=== PATIENT | male | born 1975 | race African-American/Black ===

== ENCOUNTER 2017-02-07 18:58 | Inpatient (IN) | payer MEDICAID ==
[~2017-02-07] VITALS: Ht 167.6 cm; Wt 100.0 kg
[2017-02-07] MEDS ORDERED: SODIUM CHLORIDE 0.9% 1,000 ML IV ONE (20:45)
[2017-02-07] MEDS ORDERED: LORazepam 2MG/ML-1ML VIAL IM ONE (20:45)
[2017-02-07] MEDS ORDERED: LORazepam 2MG/ML-1ML VIAL IV ONE (20:45)
[2017-02-07 21:01] LABS: Basophils # (auto) 0.1 uL; Basophils % (auto) 0.6 % (0.0-2.0); CONDITION Y; Eosinophils # (auto) 0.1 uL; Eosinophils % (auto) 1.4 % (0.0-7.0); Hematocrit 40.3 % (41.0-53.0); Hemoglobin 13.6 g/dL (13.5-17.5); Lymphocytes # (auto) 2.5 uL; Lymphocytes % (auto) 24.6 % (10.0-50.0); Mean Corpuscular Hemoglobin 30.7 pg (28.0-32.0); Mean Corpuscular Hgb Conc. 33.9 g/dL (32.0-36.0); Mean Corpuscular Volume 90.5 fL (80.0-100.0); Mean Platelet Volume 10.1 fL (7.4-10.4); Monocytes # (auto) 0.9 uL; Monocytes % (auto) 8.9 % (0.0-12.0); Neutrophils # (auto) 6.5 uL; Neutrophils % (auto) 64.5 % (37.0-80.0); Platelet Count (auto) 203 10^3/uL (140-450); Red Cell Distribution Width 14.9 % (11.6-16.0); SUSPECT SEE PRINTOUT
[2017-02-07 21:16] LABS: INR 1.04 (0.9-1.15); Partial Thromboplastin Time 28.1 sec (22.64-33.71); Prothrombin Time 11.3 sec (9.37-12.3)
[2017-02-07 21:21] LABS: Albumin 3.2 g/dL (3.4-5.0); Anion Gap 10 (5-15); Aspartate Aminotransferase 25 U/L (15-37); BUN/Creatinine Ratio 8.7; Blood Urea Nitrogen 9 mg/dL (7-18); Calcium 8.3 mg/dL (8.5-10.1); Carbon Dioxide 26 mmol/L (21-32); Chloride 106 mmol/L (98-107); GFR African American 102 mL/min; GFR Non-African American 85 mL/min; Glucose 98 mg/dL (74-106); Magnesium 2.2 mg/dL (1.6-2.6); Potassium 3.6 mmol/L (3.5-5.1); Sodium 142 mmol/L (136-145)
[2017-02-07 21:24] LABS: Alkaline Phosphatase 85 U/L (45-117); Bilirubin, Total 0.2 mg/dL (0.2-1.0)
[2017-02-07] MEDS ORDERED: LEVETIRACETAM INJ 500 MG in SODIUM CHL 0.9% 100 ML IV ONE (21:45)
[2017-02-07] MEDS ORDERED: PHENYTOIN IV DILANTIN 1,000 MG in SODIUM CHL 0.9% 250 ML IV ONE (21:45)
[2017-02-07] MEDS ORDERED: VALPROATE INJ 500 MG in SODIUM CHL 0.9% 100 ML IV ONE (21:45)
[2017-02-07] MEDS ORDERED: LORazepam 2MG/ML-1ML VIAL IV PRN (23:15)
[2017-02-07] MEDS ORDERED: LACTULOSE 20Gm/30ML SOLN PO PRN (23:15)
[2017-02-07] MEDS ORDERED: MORPHINE SULFATE 4 MG/ML SYRG IV PRN ×2 (23:15→23:45)
[2017-02-07] MEDS ORDERED: HYDROcodone-ACET 5/325MG TAB PO PRN (23:15)
[2017-02-07] MEDS ORDERED: ACETAMINOPHEN 500 MG TAB PO PRN (23:15)
[2017-02-07] MEDS ORDERED: ONDANSETRON HCL 4 MG/2 ML VIAL IV PRN (23:15)
[2017-02-07] MEDS ORDERED: LORazepam 0.5 MG TAB PO PRN (23:15)
[2017-02-07] MEDS ORDERED: PHENYTOIN SODIUM 50 MG/ML 5ML INJ VIAL IV ONE ×2 (23:18→23:24)
[2017-02-07] MEDS: SODIUM CHLORIDE 0.9% 1,000 ML IV SCH (23:30)
[2017-02-07] MEDS ORDERED: NITROGLYCERIN 0.4 MG SL TAB SL PRN (23:45)
[2017-02-07 23:55] LABS: Cholesterol 156 mg/dL (< 200); HDL Cholesterol 36 mg/dL (40-59); LDL Cholesterol 96 mg/dL (< 100); Triglycerides 182 mg/dL (< 150)
[2017-02-08] MEDS ORDERED: DIVA500T7 PO
[2017-02-08] MEDS ORDERED: SIMV10TA84 PO
[2017-02-08] MEDS ORDERED: PHEN125S OR
[2017-02-08] MEDS ORDERED: LEVE100012 PO
[2017-02-08] MEDS ORDERED: VALPROATE SODIUM 100 MG/ML 5ML VIAL IV ONE (00:44)
[2017-02-08 01:20] LABS: Urine Bilirubin Negative (Negative); Urine Blood Negative /uL (Negative); Urine Color Yellow (Yellow); Urine Glucose Normal (Normal); Urine Ketone Negative (Negative); Urine Nitrite Negative (Negative); Urine RBC 1 /hpf (0 - 3); Urine Squamous Epithelial Cell FEW /hpf (<5); Urine Urobilinogen Normal (Negative); Urine pH 6.5 (5.0-8.0)
[2017-02-08 05:37] VITALS: BP 124/54
[2017-02-08 07:14] LABS: Basophils # (auto) 0.1 uL; Basophils % (auto) 0.6 % (0.0-2.0); CONDITION Y; Eosinophils # (auto) 0.2 uL; Eosinophils % (auto) 1.6 % (0.0-7.0); Hematocrit 40.5 % (41.0-53.0); Hemoglobin 13.7 g/dL (13.5-17.5); Lymphocytes # (auto) 2.9 uL; Lymphocytes % (auto) 30.6 % (10.0-50.0); Mean Corpuscular Hgb Conc. 33.9 g/dL (32.0-36.0); Mean Corpuscular Volume 91.4 fL (80.0-100.0); Mean Platelet Volume 10.8 fL (7.4-10.4); Monocytes # (auto) 0.7 uL; Monocytes % (auto) 7.8 % (0.0-12.0); Neutrophils # (auto) 5.7 uL; Neutrophils % (auto) 59.4 % (37.0-80.0); Platelet Count (auto) 185 10^3/uL (140-450); Red Cell Distribution Width 14.4 % (11.6-16.0); White Blood Cell 9.6 10^3/uL (4.4-10.8)
[2017-02-08 07:24] LABS: BUN/Creatinine Ratio 9.6; Calcium 8.1 mg/dL (8.5-10.1); Potassium 4.2 mmol/L (3.5-5.1)
[2017-02-08 07:30] LABS: Partial Thromboplastin Time 25.8 sec (22.64-33.71); Prothrombin Time 10.9 sec (9.37-12.3)
[2017-02-08 09:10] VITALS: BP 122/76
[2017-02-08] MEDS ORDERED: PHENYTOIN SODIUM 100 MG CAP PO SCH (10:00)
[2017-02-08] MEDS: LEVETIRACETAM 500 MG TAB PO SCH ×2 (10:23→21:55)
[2017-02-08] MEDS: ENOXAPARIN SOD 40 MG/0.4 ML SYRINGE SC SCH (10:23)
[2017-02-08 13:00] VITALS: BP 126/66
[2017-02-08] MEDS: SODIUM CHLORIDE 0.9% 1,000 ML IV SCH ×2 (15:24→21:55)
[2017-02-08 17:00] VITALS: BP 119/73
[2017-02-08] MEDS: PHENYTOIN SODIUM 100 MG CAP PO SCH (21:55)
[2017-02-08] MEDS ORDERED: ATORVASTATIN 20 MG TAB PO SCH (22:00)
[2017-02-08 22:37] VITALS: BP 126/74
[2017-02-09 05:00] VITALS: BP 121/76
[2017-02-09] MEDS: PHENYTOIN SODIUM 100 MG CAP PO SCH ×2 (06:27→13:57)
[2017-02-09] MEDS ORDERED: HYDROcodone-ACET 7.5/325MG TAB PO ONE (06:45)
[2017-02-09 09:00] VITALS: BP 127/67
[2017-02-09] MEDS: ENOXAPARIN SOD 40 MG/0.4 ML SYRINGE SC SCH (10:00)
[2017-02-09] MEDS: LEVETIRACETAM 500 MG TAB PO SCH (10:34)
[2017-02-09 13:00] VITALS: BP 134/82
[2017-02-09 17:00] VITALS: BP 117/62
== END 2017-02-09 17:57 | disposition home or self-care (01) | DRG 53 ==
LOC: ER 19:05 → OVERFLOW 19:06 → WEST WING 02-08 05:24
PROVIDERS: ADMIT Nurse Practitioner Family; ATTEND Internal Medicine
DX: G40.409 Other generalized epilepsy and epileptic syndromes, not intractable, without status epilepticus (principal); G31.9 Degenerative disease of nervous system, unspecified; G93.89 Other specified disorders of brain; E78.5 Hyperlipidemia, unspecified; F17.210 Nicotine dependence, cigarettes, uncomplicated; Z91.14 Patient's other noncompliance with medication regimen; Z71.89 Other specified counseling
CPT/HCPCS: 36415; 70450; 71010; 80048; 80053; 80061; 80164; 80185; 80307; 80320; 81001; 82542; 82962; 83735; 85025; 85610; 85652; 85730; 96365; 96366; 96372; 96375; 99291

== ENCOUNTER 2017-04-19 14:56 | Inpatient (IN) | payer MEDICAID ==
[~2017-04-19] VITALS: Ht 170.2 cm; Wt 105.0 kg
[~2017-04-19 14:56] MED LIST: DIVA500T7 PO; LEVE100012 PO; SIMV10TA84 PO
[2017-04-19] MEDS ORDERED: LORazepam 2MG/ML-1ML VIAL IV ONE ×2 (16:00→16:15)
[2017-04-19 16:13] LABS: BUN/Creatinine Ratio 6.9; Calcium 9.1 mg/dL (8.5-10.1); Potassium 4.1 mmol/L (3.5-5.1)
[2017-04-19 16:23] LABS: Basophils # (auto) 0.1 uL; Basophils % (auto) 0.5 % (0.0-2.0); Eosinophils # (auto) 0.1 uL; Hematocrit 41.2 % (41.0-53.0); Lymphocytes # (auto) 2.5 uL; Lymphocytes % (auto) 23.1 % (10.0-50.0); Mean Corpuscular Hemoglobin 31.5 pg (28.0-32.0); Mean Corpuscular Volume 92.9 fL (80.0-100.0); Mean Platelet Volume 10.2 fL (7.4-10.4); Monocytes # (auto) 1.1 uL; Monocytes % (auto) 9.9 % (0.0-12.0); Neutrophils # (auto) 7.1 uL; Neutrophils % (auto) 65.5 % (37.0-80.0); Nucleated Red Blood Cells % 0.1 %; Platelet Count (auto) 201 10^3/uL (140-450); Red Cell Distribution Width 14.3 % (11.6-16.0); White Blood Cell 10.9 10^3/uL (4.4-10.8)
[2017-04-19] MEDS ORDERED: PHENYTOIN IV DILANTIN 1,000 MG in SODIUM CHL 0.9% 250 ML IV ONE (19:00)
[2017-04-19] MEDS ORDERED: VALPROATE INJ 1,000 MG in SODIUM CHL 0.9% 100 ML IV ONE (19:00)
[2017-04-19] MEDS ORDERED: ACETAMINOPHEN 325 MG TAB PO PRN (19:30)
[2017-04-19] MEDS ORDERED: LORazepam 2MG/ML-1ML VIAL IV PRN (19:30)
[2017-04-19] MEDS ORDERED: ONDANSETRON HCL 4 MG/2 ML VIAL IV PRN (19:30)
[2017-04-19] MEDS ORDERED: DOCUSATE SOD 100 MG CAP PO PRN (19:30)
[2017-04-19] MEDS ORDERED: TEMAZEPAM 15 MG CAP PO PRN (19:30)
[2017-04-19] MEDS ORDERED: MORPHINE SULF INJ 2 MG/ML SYRINGE 1ML IV PRN ×2 (19:30)
[2017-04-19] MEDS ORDERED: HYDROcodone-ACET 5/325MG TAB PO PRN (19:30)
[2017-04-19] MEDS ORDERED: NITROGLYCERIN 0.4 MG SL TAB SL PRN (19:30)
[2017-04-19] MEDS ORDERED: LEVE100020 PO (20:09)
[2017-04-19] MEDS ORDERED: SIMV-8 PO (20:09)
[2017-04-19] MEDS ORDERED: PHE100C PO (20:09)
[2017-04-19] MEDS: SODIUM CHLOR 0.9% PF (SALINE LOCK) 10ML VIAL IV SCH (22:08)
[2017-04-19] MEDS: ATORVASTATIN 20 MG TAB PO SCH (22:08)
[2017-04-19] MEDS: FAMOTIDINE 20 MG TAB PO SCH (22:08)
[2017-04-19] MEDS: LEVETIRACETAM 500 MG TAB PO SCH (22:08)
[2017-04-19] MEDS: PHENYTOIN SODIUM 100 MG CAP PO SCH (22:08)
[2017-04-20 04:16] LABS: Basophils # (auto) 0 uL; Basophils % (auto) 0.3 % (0.0-2.0); CONDITION Y; Eosinophils # (auto) 0.1 uL; Eosinophils % (auto) 0.7 % (0.0-7.0); Hematocrit 44.3 % (41.0-53.0); Lymphocytes # (auto) 3.6 uL; Lymphocytes % (auto) 27.3 % (10.0-50.0); Mean Corpuscular Hemoglobin 30.6 pg (28.0-32.0); Mean Corpuscular Hgb Conc. 33.9 g/dL (32.0-36.0); Mean Corpuscular Volume 90.5 fL (80.0-100.0); Mean Platelet Volume 10.5 fL (7.4-10.4); Monocytes # (auto) 0.8 uL; Monocytes % (auto) 6.4 % (0.0-12.0); Neutrophils # (auto) 8.5 uL; Neutrophils % (auto) 65.3 % (37.0-80.0); Platelet Count (auto) 210 10^3/uL (140-450); Red Cell Distribution Width 14.6 % (11.6-16.0)
[2017-04-20 04:25] LABS: Albumin 3.3 g/dL (3.4-5.0); BUN/Creatinine Ratio 7.6; Calcium 8.5 mg/dL (8.5-10.1); Potassium 4.3 mmol/L (3.5-5.1)
[2017-04-20 04:28] LABS: Bilirubin, Total 0.2 mg/dL (0.2-1.0); Total Protein 8.2 g/dL (6.4-8.2)
[2017-04-20] MEDS: SODIUM CHLOR 0.9% PF (SALINE LOCK) 10ML VIAL IV SCH ×3 (06:06→21:28)
[2017-04-20] MEDS: PHENYTOIN SODIUM 100 MG CAP PO SCH ×3 (06:06→21:26)
[2017-04-20] MEDS: LEVETIRACETAM 500 MG TAB PO SCH ×2 (10:05→21:26)
[2017-04-20] MEDS: FAMOTIDINE 20 MG TAB PO SCH ×2 (10:05→21:27)
[2017-04-20] MEDS: MULTIPLE VITAMIN TAB PO SCH (10:06)
[2017-04-20] MEDS ORDERED: cefTRIAXone 1GM/50ML D5W 50 ML IV ONE (12:30)
[2017-04-20] MEDS ORDERED: cloNIDine HCL 0.1 MG TAB PO PRN (12:30)
[2017-04-20 18:44] LABS: Urine RBC None Seen /hpf (0 - 3)
[2017-04-20 18:55] LABS: Urine Bilirubin Negative (Negative); Urine Blood Negative /uL (Negative); Urine Color Yellow (Yellow); Urine Glucose Normal (Normal); Urine Ketone Negative (Negative); Urine Nitrite Negative (Negative); Urine Squamous Epithelial Cell FEW /hpf (<5); Urine Urobilinogen Normal (Negative)
[2017-04-20] MEDS: BOOST PLUS 8 ounce PO SCH (19:19)
[2017-04-20 20:00] VITALS: BP 130/84
[2017-04-20] MEDS: ATORVASTATIN 20 MG TAB PO SCH (21:26)
[2017-04-20 22:28] VITALS: BP 130/84
[2017-04-21 05:13] VITALS: BP 112/68
[2017-04-21] MEDS: PHENYTOIN SODIUM 100 MG CAP PO SCH (05:33)
[2017-04-21] MEDS: SODIUM CHLOR 0.9% PF (SALINE LOCK) 10ML VIAL IV SCH (05:33)
[2017-04-21 05:55] LABS: Basophils # (auto) 0 uL; Basophils % (auto) 0.3 % (0.0-2.0); Eosinophils # (auto) 0.1 uL; Eosinophils % (auto) 0.6 % (0.0-7.0); Hemoglobin 14.2 g/dL (13.5-17.5); Lymphocytes % (auto) 28.7 % (10.0-50.0); Mean Corpuscular Hgb Conc. 33.9 g/dL (32.0-36.0); Mean Corpuscular Volume 91.6 fL (80.0-100.0); Mean Platelet Volume 9.8 fL (7.4-10.4); Monocytes % (auto) 9.2 % (0.0-12.0); Neutrophils # (auto) 6.5 uL; Neutrophils % (auto) 61.2 % (37.0-80.0); Nucleated Red Blood Cells % 0.1 %; Platelet Count (auto) 181 10^3/uL (140-450); Red Cell Distribution Width 14.2 % (11.6-16.0); White Blood Cell 10.6 10^3/uL (4.4-10.8)
[2017-04-21 06:25] LABS: Potassium 4.1 mmol/L (3.5-5.1)
[2017-04-21 06:29] LABS: Albumin 3.2 g/dL (3.4-5.0); BUN/Creatinine Ratio 10.5; Calcium 8.7 mg/dL (8.5-10.1)
[2017-04-21 06:32] LABS: Bilirubin, Total 0.4 mg/dL (0.2-1.0)
[2017-04-21 08:00] VITALS: BP 108/69
[2017-04-21] MEDS: BOOST PLUS 8 ounce PO SCH (08:24)
[2017-04-21] MEDS: MULTIPLE VITAMIN TAB PO SCH (08:56)
[2017-04-21] MEDS: FAMOTIDINE 20 MG TAB PO SCH (08:56)
[2017-04-21] MEDS: LEVETIRACETAM 500 MG TAB PO SCH (08:56)
[2017-04-21] MEDS ORDERED: cefTRIAXone 1GM/50ML D5W 50 ML IV SCH (09:00)
[2017-04-21 13:00] VITALS: BP 125/74
== END 2017-04-21 14:40 | disposition home or self-care (01) | DRG 53 ==
LOC: EDBD 14:56 → ER 14:59 → OVERFLOW 15:00 → TELE-EAST 04-20 18:37
PROVIDERS: ADMIT Internal Medicine; ATTEND Internal Medicine
DX: G40.409 Other generalized epilepsy and epileptic syndromes, not intractable, without status epilepticus (principal); G93.40 Encephalopathy, unspecified; E44.0 Moderate protein-calorie malnutrition; F05 Delirium due to known physiological condition; G93.89 Other specified disorders of brain; E66.9 Obesity, unspecified; E78.5 Hyperlipidemia, unspecified; F17.210 Nicotine dependence, cigarettes, uncomplicated; I10 Essential (primary) hypertension; J98.11 Atelectasis; R32 Unspecified urinary incontinence; Z79.899 Other long term (current) drug therapy; Z82.49 Family history of ischemic heart disease and other diseases of the circulatory system; Z68.36 Body mass index [BMI] 36.0-36.9, adult; Z91.14 Patient's other noncompliance with medication regimen
CPT/HCPCS: 36415; 70450; 71010; 80048; 80053; 80164; 80185; 81001; 82542; 82962; 85025; 87086; 93886; 96374; 96375; 97163; G0378; J0696

== ENCOUNTER 2017-08-23 17:41 | Inpatient (IN) | payer MEDICAID ==
[~2017-08-23] VITALS: Ht 165.1 cm; Wt 127.0 kg
[~2017-08-23 17:41] MED LIST changes: -LEVE100012 PO; +LEVE100020 PO; +PHE100C PO; +SIMV-8 PO; -SIMV10TA84 PO
[2017-08-23] MEDS ORDERED: PHENYTOIN SODIUM 100 MG CAP PO ONE (18:30)
[2017-08-23] MEDS ORDERED: LORazepam 2MG/ML-1ML VIAL ONE (18:48)
[2017-08-23] MEDS ORDERED: SODIUM CHLORIDE 0.9% 1,000 ML IV ONE ×2 (18:52)
[2017-08-23] MEDS ORDERED: LORazepam 2MG/ML-1ML VIAL IM ONE (19:00)
[2017-08-23 19:44] LABS: Basophils # (auto) 0.1 uL; Basophils % (auto) 0.6 % (0.0-2.0); Eosinophils # (auto) 0.1 uL; Eosinophils % (auto) 0.4 % (0.0-7.0); Hematocrit 36.7 % (41.0-53.0); Hemoglobin 11.5 g/dL (13.5-17.5); Lymphocytes # (auto) 3.2 uL; Lymphocytes % (auto) 18.1 % (10.0-50.0); Mean Corpuscular Hemoglobin 28.4 pg (28.0-32.0); Mean Corpuscular Hgb Conc. 31.3 g/dL (32.0-36.0); Mean Corpuscular Volume 90.6 fL (80.0-100.0); Monocytes # (auto) 1.8 uL; Monocytes % (auto) 10.6 % (0.0-12.0); Neutrophils # (auto) 12.3 uL; Neutrophils % (auto) 70.3 % (37.0-80.0); Nucleated Red Blood Cells % 0.2 %; Platelet Count (auto) 312 10^3/uL (140-450); Red Blood Cells 4.05 10^6/uL (4.5-5.90); Red Cell Distribution Width 15.4 % (11.8-14.3); White Blood Cell 17.5 10^3/uL (4.4-10.8)
[2017-08-23 20:06] LABS: Albumin 3.8 g/dL (3.4-5.0); Bilirubin, Total 0.2 mg/dL (0.2-1.0); Calcium 8.7 mg/dL (8.5-10.1); Potassium 3.2 mmol/L (3.5-5.1); Total Protein 8.8 g/dL (6.4-8.2)
[2017-08-23] MEDS ORDERED: HYDROcodone-ACET 5/325MG TAB PO PRN (21:15)
[2017-08-23] MEDS ORDERED: ONDANSETRON HCL 4 MG/2 ML VIAL IV PRN (21:15)
[2017-08-23] MEDS ORDERED: LORazepam 2MG/ML-1ML VIAL IV PRN (21:15)
[2017-08-23] MEDS ORDERED: ACETAMINOPHEN 500 MG TAB PO PRN (21:15)
[2017-08-23] MEDS: PHENYTOIN SODIUM 100 MG CAP PO SCH (22:00)
[2017-08-23] MEDS ORDERED: LEVETIRACETAM 500 MG TAB PO SCH (22:00)
[2017-08-23] MEDS ORDERED: LEVETIRACETAM INJ 500 MG in D5W 5% 100 ML IV ONE (23:15)
[2017-08-23] MEDS ORDERED: LEVETIRACETAM INJ 1,000 MG in D5W 5% 100 ML IV ONE (23:30)
[2017-08-23] MEDS ORDERED: LEVETIRACETAM 500 MG/5ML INJ IV ONE (23:35)
[2017-08-24 02:41] VITALS: BP 122/76
[2017-08-24 05:00] VITALS: BP 124/88
[2017-08-24] MEDS: PHENYTOIN SODIUM 100 MG CAP PO SCH ×3 (05:42→21:34)
[2017-08-24 06:47] LABS: Basophils # (auto) 0.1 uL; Eosinophils # (auto) 0.1 uL; Eosinophils % (auto) 0.7 % (0.0-7.0); Hematocrit 34.7 % (41.0-53.0); Hemoglobin 11.3 g/dL (13.5-17.5); Lymphocytes # (auto) 2.2 uL; Lymphocytes % (auto) 20.1 % (10.0-50.0); Mean Corpuscular Hemoglobin 28.7 pg (28.0-32.0); Mean Corpuscular Hgb Conc. 32.6 g/dL (32.0-36.0); Mean Corpuscular Volume 88.2 fL (80.0-100.0); Monocytes % (auto) 9.6 % (0.0-12.0); Neutrophils # (auto) 7.4 uL; Neutrophils % (auto) 68.6 % (37.0-80.0); Platelet Count (auto) 281 10^3/uL (140-450); Red Blood Cells 3.94 10^6/uL (4.5-5.90); White Blood Cell 10.7 10^3/uL (4.4-10.8)
[2017-08-24 07:05] LABS: BUN/Creatinine Ratio 8.2; Calcium 8.3 mg/dL (8.5-10.1); Potassium 3.9 mmol/L (3.5-5.1)
[2017-08-24 09:00] VITALS: BP 127/83
[2017-08-24] MEDS ORDERED: LEVETIRACETAM INJ 500 MG in D5W 5% 100 ML IV SCH (10:00)
[2017-08-24 14:14] VITALS: BP 126/68
[2017-08-24 22:00] VITALS: BP 107/61
[2017-08-25 05:00] VITALS: BP 138/73
[2017-08-25] MEDS: PHENYTOIN SODIUM 100 MG CAP PO SCH (06:01)
[2017-08-25 09:00] VITALS: BP 121/92
[2017-08-25 10:34] VITALS: BP 121/92
== END 2017-08-25 11:00 | disposition home or self-care (01) | DRG 58 ==
LOC: ER 17:41 → EDBD 17:41 → OVERFLOW 17:42 → WEST WING 08-24 01:50
PROVIDERS: ADMIT Nurse Practitioner Family; ATTEND Internal Medicine
DX: G93.89 Other specified disorders of brain (principal); Z68.42 Body mass index [BMI] 45.0-49.9, adult; G40.409 Other generalized epilepsy and epileptic syndromes, not intractable, without status epilepticus; E66.01 Morbid (severe) obesity due to excess calories; E87.6 Hypokalemia; D64.9 Anemia, unspecified; D72.829 Elevated white blood cell count, unspecified; F17.210 Nicotine dependence, cigarettes, uncomplicated; Z79.899 Other long term (current) drug therapy; Z82.49 Family history of ischemic heart disease and other diseases of the circulatory system; Z91.19 Patient's noncompliance with other medical treatment and regimen; Z80.8 Family history of malignant neoplasm of other organs or systems
CPT/HCPCS: 36415; 36600; 70450; 71045; 80048; 80053; 80185; 82542; 82805; 85025; 87040; 96365; 96372; 96375; J7060

== ENCOUNTER 2019-12-11 18:52 | Inpatient (IN) | payer MEDICAID ==
[~2019-12-11] VITALS: Ht 182.9 cm; Wt 96.7 kg
[~2019-12-11 18:52] MED LIST changes: +DIVA1TAB59 PO; -DIVA500T7 PO
[2019-12-11 19:45] LABS: Urine Bacteria NONE SEEN /hpf (None Seen); Urine Blood 2+ /uL (Negative); Urine Specific Gravity 1.011 (1.001-1.035); Urine WBC 1 /hpf (0 - 3)
[2019-12-11] MEDS ORDERED: SODIUM CHLORIDE 0.9% 1,000 ML IV ONE (19:45)
[2019-12-11 19:50] LABS: Basophils # (auto) 0.1 10 ^3/uL (0-0.2); Basophils % (auto) 0.6 % (0.0-2.0); Eosinophils # (auto) 0 10 ^3/uL (0-0.8); Eosinophils % (auto) 0.1 % (0.0-7.0); Hematocrit 42.6 % (41.0-53.0); Hemoglobin 13.2 g/dL (13.5-17.5); Mean Corpuscular Hemoglobin 28.3 pg (28.0-32.0); Mean Corpuscular Volume 91.1 fL (80.0-100.0); Monocytes % (auto) 5.5 % (0.0-12.0); Neutrophils # (auto) 15.1 10 ^3/uL (1.6-8.6); Neutrophils % (auto) 82.8 % (37.0-80.0); Platelet Count (auto) 247 10^3/uL (140-450); Red Blood Cells 4.68 10^6/uL (4.5-5.90); Red Cell Distribution Width 17.4 % (11.8-14.3); White Blood Cell 18.3 10^3/uL (4.4-10.8)
[2019-12-11 19:55] LABS: Amphetamine Screen, Urine NEGATIVE (NEGATIVE); Barbiturate Scree,Urine NEGATIVE (NEGATIVE); Benzodiazephine Screen, Urine NEGATIVE (NEGATIVE); Cannabinoid Screen, Urine POSITIVE (NEGATIVE); Cocaine Screen, Urine NEGATIVE (NEGATIVE); Opiate Scree,Urine NEGATIVE (NEGATIVE); Phencyclidine Screen, Urine NEGATIVE (NEGATIVE)
[2019-12-11 20:01] LABS: INR 1.02 (0.9-1.15); Partial Thromboplastin Time 23.9 sec (23.64-32.05)
[2019-12-11 20:05] LABS: Albumin 3.8 g/dL (3.4-5.0); Anion Gap 13 (5-15); BUN/Creatinine Ratio 8.9; Blood Alcohol < 3.0 mg/dL (0-5); Blood Urea Nitrogen 14 mg/dL (7-18); Calcium 9.3 mg/dL (8.5-10.1); Carbon Dioxide 19 mmol/L (21-32); Chloride 106 mmol/L (98-107); GFR African American 62 mL/min; GFR Non-African American 51 mL/min; Glucose 103 mg/dL (74-106); Potassium 4.3 mmol/L (3.5-5.1); Sodium 138 mmol/L (136-145)
[2019-12-11 20:08] LABS: Phenytoin (Dilantin) 1.8 ug/mL (10-20)
[2019-12-11 20:10] LABS: Alanine Aminotransferase 19 U/L (16-61); Alkaline Phosphatase 78 U/L (45-117); Aspartate Aminotransferase 27 U/L (15-37); Bilirubin, Total 0.2 mg/dL (0.2-1.0); Total Protein 9.2 g/dL (6.4-8.2)
[2019-12-11] MEDS ORDERED: SODIUM CHLORIDE 0.9% 3,000 ML IV ONE (20:15)
[2019-12-11] MEDS ORDERED: PHENYTOIN IV DILANTIN 1,000 MG in SODIUM CHL 0.9% 250 ML IV ONE (20:30)
[2019-12-11] MEDS ORDERED: LORazepam 2MG/ML-1ML VIAL ONE (20:36)
[2019-12-11] MEDS ORDERED: LORazepam 2MG/ML-1ML VIAL IV ONE (20:45)
[2019-12-11] MEDS ORDERED: SODIUM CHLORIDE 0.9% 2,000 ML IV ONE (22:45)
[2019-12-11] MEDS ORDERED: cefTRIAXone 1GM/50ML D5W 50 ML IV ONE (23:00)
[2019-12-12] VITALS (7 sets, daily range): BP systolic 104–166; BP diastolic 56–72
[2019-12-12] MEDS ORDERED: NITROGLYCERIN 0.4 MG SL TAB SL PRN (00:15)
[2019-12-12] MEDS ORDERED: ACETAMINOPHEN 325 MG TAB PO PRN (00:15)
[2019-12-12] MEDS ORDERED: MORPHINE SULF INJ 2 MG/ML SYRINGE 1ML IV PRN (00:15)
[2019-12-12] MEDS ORDERED: ONDANSETRON HCL 4 MG/2 ML VIAL IV PRN (00:15)
[2019-12-12] MEDS ORDERED: TEMAZEPAM 15 MG CAP PO PRN (00:15)
[2019-12-12] MEDS ORDERED: LORazepam 2MG/ML-1ML VIAL IV PRN ×2 (00:15→18:00)
[2019-12-12] MEDS: SODIUM CHLORIDE 0.9% 1,000 ML IV SCH ×2 (00:45→15:03)
[2019-12-12] MEDS ORDERED: levoFLOXacin 500MG 100 ML IV SCH (01:00)
--- NOTE | 2019-12-12 02:00 | NUR ---
Telemetry admit from ER JELENAKELSEA admitted to Telemetry unit after SBAR received. Patient oriented to Giovanni Santo, primary RN, unit, room, bed, and unit policies regarding patient care and visiting hours. Patient now on continuous telemetry monitoring, tele box # and telemetry reading on arrival to unit is 62. Patient placed on bedside oxygen, weighed by bedscale and encouraged to call if they need something. All questions and concerns addressed, patient verbalized understanding. Note: HARD TO KEEP AWAKE
--- NOTE | 2019-12-12 05:23 | NUR ---
PAGED HOSPITALIST REGARDING PT HTN, BP 166/65 NO PRN AND NO DIET ORDER.
[2019-12-12] MEDS: PHENYTOIN SODIUM 100 MG CAP PO SCH ×3 (05:46→23:18)
--- NOTE | 2019-12-12 06:11 | NUR ---
CALLBACK HOSPITALIST: ORDERS RECEIVED.
[2019-12-12] MEDS ORDERED: LABETALOL HCL 5 MG/ML 4ML SYRINGE IV ONE (06:15)
--- NOTE | 2019-12-12 07:42 | NUR ---
TEMP CHECK: 98.7 DEGREES FAHRENHEIT TEMP CHECK ORALLY.
--- NOTE | 2019-12-12 07:45 | NUR ---
OPENING SHIFT NOTE: PATIENT RESTING IN BED, A/OX4 RESPIRATIONS EVEN AND UNLABORED. SEIZURE PRECAUTIONS IN PLACE. HASSAN HUNG BELOW BLADDER FREE OF KINKS. UPDATED ON PLAN OF CARE PATIENT VERBALIZED UNDERSTANDING. CALL LIGHT PLACED WITHIN REACH, BED ALARM ON AND IN PLACE WILL CONTINUE TO MONITOR.
[2019-12-12] MEDS: FAMOTIDINE 20 MG TAB PO SCH ×2 (09:12→23:27)
[2019-12-12] MEDS: levETIRAcetam 500 MG TAB PO SCH ×2 (09:13→23:28)
[2019-12-12] MEDS ORDERED: ASPirin 81 mg TAB PO SCH ×2 (10:00→18:00)
--- NOTE | 2019-12-12 10:57 | NUR ---
FAMILY CONTACT: ADRIANNE REYNOLDS LEFT PHONE NUMBER WITH PATIENT. [phone] FOR UPDATES ON PATIENT DISCHARGE INFORMATION.
[2019-12-12] MEDS: HYDROcodone-ACET 5/325MG TAB PO PRN (15:03)
--- NOTE | 2019-12-12 17:30 | NUR ---
MD HOU ROUNDING.
[2019-12-12 18:23] LABS: Cholesterol 250 mg/dL (< 200)
[2019-12-12 18:26] LABS: HDL Cholesterol 58 mg/dL (40-59); LDL Cholesterol 167 mg/dL (< 100); Triglycerides 91 mg/dL (< 150)
--- NOTE | 2019-12-12 18:50 | NUR ---
MD LUJAN ROUNDING: ORDERS FOR 1GM ROCEPHIN NOW, THEN CONTINUE WITH LEVAQUIN ORDERED BY MD MORALES FOR TOMORROW.
--- NOTE | 2019-12-12 18:52 | NUR ---
CARE ENDORSED TO CHRISTINE ONEILL.
[2019-12-12] MEDS ORDERED: cefTRIAXone 1GM/50ML D5W 50 ML IV ONE (19:00)
[2019-12-12] MEDS: IPRATROPIUM BROM 0.5 MG/2.5ML INH SOL NEB SCH (19:26)
[2019-12-12] MEDS: ALBUTEROL SULF 2.5 MG/0.5ML(0.5%) NEB SOLN NEB SCH (19:26)
[2019-12-12] MEDS: ASPirin 81 mg TAB PO SCH (23:18)
[2019-12-12] MEDS: ATORVASTATIN 20 MG TAB PO SCH (23:27)
[2019-12-13] MEDS: SODIUM CHLORIDE 0.9% 1,000 ML IV SCH ×2 (02:55→18:16)
[2019-12-13 05:00] VITALS: BP 108/73
[2019-12-13 06:07] LABS: Basophils # (auto) 0.1 10 ^3/uL (0-0.2); Basophils % (auto) 0.7 % (0.0-2.0); Eosinophils # (auto) 0.1 10 ^3/uL (0-0.8); Eosinophils % (auto) 0.8 % (0.0-7.0); Hematocrit 34.6 % (41.0-53.0); Hemoglobin 11.2 g/dL (13.5-17.5); Lymphocytes # (auto) 2.5 10 ^3/uL (0.4-5.4); Mean Corpuscular Hemoglobin 29.2 pg (28.0-32.0); Mean Corpuscular Hgb Conc. 32.4 g/dL (32.0-36.0); Mean Corpuscular Volume 90.1 fL (80.0-100.0); Monocytes % (auto) 10.9 % (0.0-12.0); Neutrophils # (auto) 5.8 10 ^3/uL (1.6-8.6); Neutrophils % (auto) 61.6 % (37.0-80.0); Nucleated Red Blood Cells % 0.1 %; Platelet Count (auto) 128 10^3/uL (140-450); Red Blood Cells 3.83 10^6/uL (4.5-5.90); Red Cell Distribution Width 16.4 % (11.8-14.3); White Blood Cell 9.5 10^3/uL (4.4-10.8)
[2019-12-13] MEDS: IPRATROPIUM BROM 0.5 MG/2.5ML INH SOL NEB SCH ×3 (06:11→18:14)
[2019-12-13] MEDS: ALBUTEROL SULF 2.5 MG/0.5ML(0.5%) NEB SOLN NEB SCH ×3 (06:11→18:14)
[2019-12-13] MEDS: PHENYTOIN SODIUM 100 MG CAP PO SCH ×3 (06:12→23:23)
[2019-12-13 06:29] LABS: Albumin 2.9 g/dL (3.4-5.0); Potassium 3.9 mmol/L (3.5-5.1)
[2019-12-13 06:37] LABS: Bilirubin, Total 0.3 mg/dL (0.2-1.0); Total Protein 7.2 g/dL (6.4-8.2)
[2019-12-13 09:00] VITALS: BP 105/72
[2019-12-13] MEDS ORDERED: levoFLOXacin 750MG 150 ML IV SCH (10:00)
[2019-12-13] MEDS: HYDROcodone-ACET 5/325MG TAB PO PRN (10:45)
[2019-12-13] MEDS: FAMOTIDINE 20 MG TAB PO SCH ×2 (10:46→23:24)
[2019-12-13] MEDS: ASPirin 81 mg TAB PO SCH (10:46)
[2019-12-13] MEDS: levETIRAcetam 500 MG TAB PO SCH ×2 (10:46→23:24)
[2019-12-13 12:58] VITALS: BP 129/85
[2019-12-13 15:07] VITALS: BP 125/85
--- NOTE | 2019-12-13 15:49 | NUR ---
HASSAN DC'D: PATIENT REPORTING BEING ABLE TO VOID INDEPENDENTLY. OK TO DC HASSAN PER MD MORALES. 2500 OUT OF HASSAN FROM START OF SHIFT, 10CC WITHDRAWN FROM [place]. CATHETER INTACT. PATIENT VERBALIZED UNDERSTANDING TO NOTIFY THIS RN OF FIRST VOID.
[2019-12-13 17:00] VITALS: BP 128/78
--- NOTE | 2019-12-13 19:11 | NUR ---
CARE ENDORSED TO CHRISTINE ONEILL.
[2019-12-13] MEDS ORDERED: LORazepam 2MG/ML-1ML VIAL IV PRN (19:30)
[2019-12-13 22:23] VITALS: BP 127/74
[2019-12-13] MEDS: ATORVASTATIN 20 MG TAB PO SCH (23:24)
[2019-12-14 05:30] VITALS: BP 108/57
[2019-12-14] MEDS: PHENYTOIN SODIUM 100 MG CAP PO SCH ×3 (05:45→20:52)
[2019-12-14 05:48] LABS: Basophils # (auto) 0 10 ^3/uL (0-0.2); Basophils % (auto) 0.6 % (0.0-2.0); Eosinophils # (auto) 0.1 10 ^3/uL (0-0.8); Eosinophils % (auto) 0.8 % (0.0-7.0); Hematocrit 36.9 % (41.0-53.0); Hemoglobin 11.9 g/dL (13.5-17.5); Lymphocytes # (auto) 2.2 10 ^3/uL (0.4-5.4); Lymphocytes % (auto) 25.1 % (10.0-50.0); Mean Corpuscular Hemoglobin 28.8 pg (28.0-32.0); Mean Corpuscular Hgb Conc. 32.2 g/dL (32.0-36.0); Mean Corpuscular Volume 89.6 fL (80.0-100.0); Monocytes # (auto) 1.1 10 ^3/uL (0-1.3); Monocytes % (auto) 12.3 % (0.0-12.0); Neutrophils # (auto) 5.5 10 ^3/uL (1.6-8.6); Neutrophils % (auto) 61.2 % (37.0-80.0); Nucleated Red Blood Cells % 0.1 %; Platelet Count (auto) 169 10^3/uL (140-450); Red Blood Cells 4.12 10^6/uL (4.5-5.90); Red Cell Distribution Width 16.7 % (11.8-14.3); White Blood Cell 8.9 10^3/uL (4.4-10.8)
[2019-12-14] MEDS: SODIUM CHLORIDE 0.9% 1,000 ML IV SCH ×2 (05:50→18:22)
[2019-12-14 06:10] LABS: Potassium 4.2 mmol/L (3.5-5.1)
[2019-12-14 06:11] LABS: Calcium 8.9 mg/dL (8.5-10.1)
[2019-12-14] MEDS: ALBUTEROL SULF 2.5 MG/0.5ML(0.5%) NEB SOLN NEB SCH ×3 (06:41→19:06)
[2019-12-14] MEDS: IPRATROPIUM BROM 0.5 MG/2.5ML INH SOL NEB SCH ×3 (06:41→19:06)
[2019-12-14 09:00] VITALS: BP 112/85
[2019-12-14] MEDS: levETIRAcetam 500 MG TAB PO SCH ×2 (09:35→20:52)
[2019-12-14] MEDS: levoFLOXacin 250 MG TAB PO SCH (09:36)
[2019-12-14] MEDS: FAMOTIDINE 20 MG TAB PO SCH ×2 (09:36→20:52)
--- NOTE | 2019-12-14 10:34 | NUR ---
DR. Quinonez at [facility] discussed with patient, received new order, noted and carried it out. Signed: 12/14/19 at 1034 by AMBER GEE RN
[2019-12-14] MEDS ORDERED: LACTULOSE 20Gm/30ML SOLN PO PRN (10:45)
[2019-12-14 13:00] VITALS: BP 130/79
--- NOTE | 2019-12-14 13:47 | NUR ---
ELECTROENCEPHALOGRAM EEG COMPLETED AT BEDSIDE. NINO BECK.
[2019-12-14] MEDS: Ensure HIGH Protein Chocolate 8oz Bottle PO SCH ×2 (13:49→18:22)
--- NOTE | 2019-12-14 14:19 | NUR ---
assessment Patient is a 44 year old male who is alert and oriented. Patients cognitive abilities are intact. Prior to admission patient lived home with family and functioned with assistance. Per patient he will return home to his prior living arrangements post discharge and family will transport him home. Patient feels safe returning home on discharge. Patient has been admitted for Sepsis. Patient may need home IV ABX on discharge. I informed patient he has a right to speak to a social services counselor regarding all care. I informed patient he has a right to participate in any and all discharge planning. Patient does not have a POA and advanced directive. I have offered patient information on POA and advanced directives. I informed the patient the advantages and benefits of having an Advanced Directive. Patient verbalized understanding and agreed to discharge plan. Addendum: 12/14/19 at 1420 by Gabby ASENCIO Amended: Links added.
[2019-12-14 17:00] VITALS: BP 121/72
[2019-12-14] MEDS: ATORVASTATIN 20 MG TAB PO SCH (20:52)
[2019-12-14 22:00] VITALS: BP 127/75
[2019-12-15 05:00] VITALS: BP 126/82
[2019-12-15] MEDS: PHENYTOIN SODIUM 100 MG CAP PO SCH ×3 (05:46→22:10)
[2019-12-15] MEDS: ALBUTEROL SULF 2.5 MG/0.5ML(0.5%) NEB SOLN NEB SCH ×3 (05:50→18:14)
[2019-12-15] MEDS: IPRATROPIUM BROM 0.5 MG/2.5ML INH SOL NEB SCH ×3 (05:50→18:14)
[2019-12-15 06:03] LABS: Basophils # (auto) 0 10 ^3/uL (0-0.2); Basophils % (auto) 0.5 % (0.0-2.0); Eosinophils # (auto) 0.1 10 ^3/uL (0-0.8); Eosinophils % (auto) 0.9 % (0.0-7.0); Hematocrit 39.7 % (41.0-53.0); Hemoglobin 12.9 g/dL (13.5-17.5); Lymphocytes % (auto) 24.9 % (10.0-50.0); Mean Corpuscular Hemoglobin 29.1 pg (28.0-32.0); Mean Corpuscular Hgb Conc. 32.6 g/dL (32.0-36.0); Mean Corpuscular Volume 89.4 fL (80.0-100.0); Monocytes # (auto) 0.9 10 ^3/uL (0-1.3); Monocytes % (auto) 11.5 % (0.0-12.0); Neutrophils % (auto) 62.2 % (37.0-80.0); Nucleated Red Blood Cells % 0.1 %; Platelet Count (auto) 182 10^3/uL (140-450); Red Blood Cells 4.44 10^6/uL (4.5-5.90); Red Cell Distribution Width 16.3 % (11.8-14.3); White Blood Cell 8.1 10^3/uL (4.4-10.8)
[2019-12-15 06:20] LABS: BUN/Creatinine Ratio 12.9; Calcium 9.5 mg/dL (8.5-10.1); Potassium 3.9 mmol/L (3.5-5.1)
[2019-12-15] MEDS: Ensure HIGH Protein Chocolate 8oz Bottle PO SCH ×3 (08:13→17:48)
[2019-12-15 09:00] VITALS: BP 124/77
[2019-12-15] MEDS: levETIRAcetam 500 MG TAB PO SCH ×2 (09:05→22:10)
[2019-12-15] MEDS: levoFLOXacin 250 MG TAB PO SCH (09:05)
[2019-12-15] MEDS: FAMOTIDINE 20 MG TAB PO SCH ×2 (09:05→22:10)
[2019-12-15] MEDS: SODIUM CHLORIDE 0.9% 1,000 ML IV SCH (09:06)
[2019-12-15 13:00] VITALS: BP 121/67
[2019-12-15 17:00] VITALS: BP 121/85
--- NOTE | 2019-12-15 19:30 | NUR ---
Opening Shift Note Assumed care of patient, awake and alert x4. Patient denies pain or shortness of breath at this time. Instructed on plan of care and to call for assistance as needed, patient verbalized understanding. Bed is locked in lowest position, side rails x 2 are up, and call light is within reach.
[2019-12-15 22:00] VITALS: BP 123/74
[2019-12-15] MEDS: ATORVASTATIN 20 MG TAB PO SCH (22:10)
[2019-12-16 05:00] VITALS: BP 128/61
[2019-12-16] MEDS: IPRATROPIUM BROM 0.5 MG/2.5ML INH SOL NEB SCH ×2 (05:58→11:14)
[2019-12-16] MEDS: ALBUTEROL SULF 2.5 MG/0.5ML(0.5%) NEB SOLN NEB SCH ×2 (05:58→11:14)
[2019-12-16] MEDS: PHENYTOIN SODIUM 100 MG CAP PO SCH ×2 (06:31→14:11)
--- NOTE | 2019-12-16 08:04 | NUR ---
OPENING SHIFT NOTE Assumed care of patient. PT is awake and alert. No s/s of distress or SOB. Explained POC. Will continue to monitor Q1hr and PRN. Safety precautions maintained bed is in lowest position and locked,and bed rails 2x. Call light and bedside table are within reach.
--- NOTE | 2019-12-16 08:35 | NUR ---
SPOKE WITH "FREDY" STATED HE WAS PT'S DAD. NO PASSWORD SET. EXPLAINED THIS TO FAMILY MEMBER. WILL ASK PT ABOUT PASSWORD SETUP.
--- NOTE | 2019-12-16 08:52 | NUR ---
PASSWORD UPDATED PER PT REQUEST.
[2019-12-16 09:32] VITALS: BP 111/74
[2019-12-16] MEDS: Ensure HIGH Protein Chocolate 8oz Bottle PO SCH ×3 (09:56→16:56)
[2019-12-16] MEDS: levoFLOXacin 250 MG TAB PO SCH (09:56)
[2019-12-16] MEDS: levETIRAcetam 500 MG TAB PO SCH (09:57)
[2019-12-16] MEDS: FAMOTIDINE 20 MG TAB PO SCH (09:57)
[2019-12-16 12:09] VITALS: BP 111/74
[2019-12-16 14:14] VITALS: BP 118/69
[2019-12-16 16:45] VITALS: BP 118/69
--- NOTE | 2019-12-16 16:50 | NUR ---
Nutrition Assessment Notes Please refer to link for full assessment notes. Est Energy needs: 9646-7411 kcals (20-23 kcal/kgBW) Est Protein needs: 77-96 gms/day (0.8-1.0 gm/kgBW) Will continue to monitor and reassess prn. Addendum: 12/16/19 at [address] Amended: Links added.
[2019-12-16 17:24] VITALS: BP 138/71
== END 2019-12-16 17:20 | disposition home or self-care (01) | DRG 720 ==
LOC: EDUNIT# 18:52 → EDBD 18:52 → ER 18:52 → TELE 18:53 → TELE-WESTW 12-12 01:55
PROVIDERS: ADMIT Nurse Practitioner; ATTEND Internal Medicine Nephrology
DX: A41.9 Sepsis, unspecified organism (principal); I21.A1 Myocardial infarction type 2; J18.9 Pneumonia, unspecified organism; E11.22 Type 2 diabetes mellitus with diabetic chronic kidney disease; K76.89 Other specified diseases of liver; E66.9 Obesity, unspecified; I12.9 Hypertensive chronic kidney disease with stage 1 through stage 4 chronic kidney disease, or unspecified chronic kidney disease; J45.909 Unspecified asthma, uncomplicated; E78.5 Hyperlipidemia, unspecified; G40.401 Other generalized epilepsy and epileptic syndromes, not intractable, with status epilepticus; F17.210 Nicotine dependence, cigarettes, uncomplicated; I25.2 Old myocardial infarction; Z68.31 Body mass index [BMI] 31.0-31.9, adult; Z79.82 Long term (current) use of aspirin; Z79.899 Other long term (current) drug therapy; Z82.49 Family history of ischemic heart disease and other diseases of the circulatory system; Z83.3 Family history of diabetes mellitus; N18.2 Chronic kidney disease, stage 2 (mild)
CPT/HCPCS: 36415; 51702; 70450; 70545; 70551; 71250; 72125; 74176; 76705; 80048; 80053; 80061; 80164; 80185; 80307; 80320; 81001; 83605; 84443; 84484; 85025; 85610; 85730; 87040; 93005; 93306; 93886; 94640; 95819; 96361; 96365; 96367; 96368; 96375; 99291; G0378; J0696; J1956; J3490; J7060